=== PATIENT | male | born 1990 | race African-American/Black ===

== ENCOUNTER 2019-11-10 18:52 | Emergency (ER) | payer SELFPAY ==
--- NOTE | 2019-11-10 19:44 | ER Document Report ---
ED Medical Screen (RME) - General Chief Complaint: Numbness of Arm Stated Complaint: RIGHT HAND NUMBNESS, SWELLING Time Seen by Provider: 11/10/19 19:29 - HPI Notes: 11/10/19 19:[address] Lawler and we will get basic labs/CT to further evaluate. Patient is a 28-year-old male who woke up [place] morning having numbness from his elbow distal through his fingers and having the inability to move his hand through complete range of motion. Patient states that the sensation has since resolved to his forearm, but from his wrist distal he has difficulty moving his hand and still has tingling associated. No headache. He did not have any droop of his face or other areas of weakness during this time. Patient is not sure if he slept on his arm wrong or not. No other significant past medical history. I have treated and performed a rapid initial assessment of this patient. A comprehensive ED assessment and evaluation of the patient, analysis of test results and completion of medical decision making process will be conducted by additional ED providers. PHYSICAL EXAMINATION: GENERAL: Well-appearing, well-nourished and in no acute distress. A&Ox4. Answers questions appropriately. Neuro: He does have sensation to sharp and dull to the hands bilaterally. There may be some mild decrease sensation to the right hand overall however. Decreased motor function to the right hand. Neuro exam otherwise unremarkable. - Related Data Allergies/Adverse Reactions: No Known Allergies Allergy (Unverified 11/10/19 19:29) Physical Exam - Vital signs Vitals: Temp Pulse Resp BP Pulse Ox 98.5 F 79 18 125/59 L 99 11/10/19 18:57 11/10/19 18:57 11/10/19 18:57 11/10/19 18:57 11/10/19 18:57 Course - Vital Signs Vital signs: Temp Pulse Resp BP Pulse Ox 98.5 F 79 18 125/59 L 99 11/10/19 18:57 11/10/19 18:57 11/10/19 18:57 11/10/19 18:57 11/10/19 18:57
[2019-11-10 20:10] LABS: APPEARANCE,URINE CLEAR; BILIRUBIN,URINE NEGATIVE (NEGATIVE); COLOR,URINE YELLOW; GLUCOSE, URINE NEGATIVE (NEGATIVE); KETONES,URINE NEGATIVE (NEGATIVE); PROTEIN,URINE NEGATIVE (NEGATIVE); URINE SPECIFIC GRAVITY 1.026; UROBILINOGEN,URINE NEGATIVE mg/dL (<2.0)
[2019-11-10 20:16] LABS: ABSOLUTE EOSINOPHILS # (AUTO) 0.1 10^3/uL (0.0-0.6); ABSOLUTE MONOCYTES (AUTO) 0.6 10^3/uL (0.1-1.4); ABSOLUTE NEUT (AUTO) 2.3 10^3/uL (1.7-8.2); HEMOGLOBIN 14.5 g/dL (13.5-17.0); TOTAL CELLS COUNTED % (AUTO) 100 %; WHITE BLOOD COUNT 5.2 10^3/uL (4.0-10.5)
[2019-11-10 20:19] LABS: ABSOLUTE LYMPHOCYTES (AUTO) 2.1 10^3/uL (0.5-4.7); BASOPHILS % (AUTO) 0.7 % (0-2); EOSINOPHILS % (AUTO) 1.4 % (0-6); HEMATOCRIT 42.4 % (37.9-51.0); LYMPHOCYTES % (AUTO) 41.3 % (13-45); MEAN CORPUSCULAR HGB CONC 34.3 g/dL (32.0-36.0); MEAN CORPUSCULAR VOLUME 88 fl (80-97); MONOCYTES % (AUTO) 11.3 % (3-13); PLATELET COUNT 229 10^3/uL (150-450); RED BLOOD COUNT 4.85 10^6/uL (4.35-5.55); RED CELL DISTRIBUTION WIDTH 14.4 % (11.5-14.0); SEGMENTED NEUTROPHILS % (AUTO) 45.3 % (42-78)
[2019-11-10 20:34] LABS: ALBUMIN 4.2 g/dL (3.5-5.0); ALKALINE PHOSPHATASE 45 U/L (38-126); ANION GAP 7 (5-19); ASPARTATE AMINO TRANSFERASE 28 U/L (17-59); BILIRUBIN,TOTAL 0.2 mg/dL (0.2-1.3); BLOOD UREA NITROGEN 15 mg/dL (7-20); CALCIUM 9.8 mg/dL (8.4-10.2); CARBON DIOXIDE 30 mmol/L (22-30); CHLORIDE 101 mmol/L (98-107); GLUCOSE 100 mg/dL (75-110); POTASSIUM 4.1 mmol/L (3.6-5.0); TOTAL PROTEIN 7.7 g/dL (6.3-8.2)
--- NOTE | 2019-11-10 20:44 | RADIOLOGY REPORT (SQ) ---
EXAM DESCRIPTION: CT HEAD WITHOUT IV CONTRAST COMPLETED DATE/TME: 11/10/2019 19:41 CLINICAL HISTORY: Right forearm and hand numbness, focal deficit COMPARISON: None Available. TECHNIQUE: Contiguous axial images of the brain were obtained without the administration of intravenous contrast. This exam was performed according to our departmental dose-optimization program, which includes automated exposure control, adjustment of the mA and/or kV according to patient size and/or use of iterative reconstruction technique. FINDINGS: There is no acute intracranial hemorrhage or mass effect. Ventricular system is within normal limits. There is adequate babb-white matter differentiation. There is no skull fracture. The visualized paranasal sinuses and mastoid air cells are within normal limits. IMPRESSION: No acute intracranial abnormalities. Follow-up MRI could be helpful for further evaluation of patient's symptoms.
--- NOTE | 2019-11-10 21:57 | ER Document Report ---
ED General - General Chief Complaint: Numbness of Arm Stated Complaint: RIGHT HAND NUMBNESS, SWELLING Time Seen by Provider: 11/10/19 19:29 Notes: Patient is a 28-year-old male that comes emergency department for chief complaint of right hand weakness and numbness. He states that on Sunday morning he woke up and he felt numbness in his right forearm and in the right hand, he states the right forearm improved and now he only feels it in the hand but he cannot extend the fingers, he cannot extend his hand at the wrist, and he has a weakened bundler seasonal greenery. He denies any visual changes, headache, speech difficulty, leg deficit, or any other symptoms. He denies neck pain or history of any abnormality with the cervical spine. He denies history of IV drug abuse, he denies any daily medications or diagnosed past medical history. His mother is here with him. - Related Data Allergies/Adverse Reactions: No Known Allergies Allergy (Unverified 11/10/19 19:29) Past Medical History - General Information source: Patient - Social History Smoking Status: Current Every Day Smoker Frequency of alcohol use: None Drug Abuse: None Lives with: Family Family History: Reviewed & Not Pertinent Patient has suicidal ideation: No Patient has homicidal ideation: No Surgical Hx: Negative - Immunizations Immunizations up to date: Yes Hx Diphtheria, Pertussis, Tetanus Vaccination: Yes Review of Systems - Review of Systems Constitutional: No symptoms reported EENT: No symptoms reported Cardiovascular: No symptoms reported Respiratory: No symptoms reported Gastrointestinal: No symptoms reported Genitourinary: No symptoms reported Male Genitourinary: No symptoms reported Musculoskeletal: See HPI Skin: No symptoms reported Hematologic/Lymphatic: No symptoms reported Neurological/Psychological: See HPI Physical Exam - Vital signs Vitals: Temp Pulse Resp BP Pulse Ox 98.5 F 79 18 125/59 L 99 11/10/19 18:57 11/10/19 18:57 11/10/19 18:57 11/10/19 18:57 11/10/19 18:57 - Notes Notes: GENERAL: Alert, interacts well. No acute distress. HEAD: Normocephalic, atraumatic. EYES: Pupils equal, round, and reactive to light. Extraocular movements intact. ENT: Oral mucosa moist, tongue midline. Oropharynx unremarkable. Airway patent. NECK: Full range of motion. Supple. Trachea midline. LUNGS: Clear to auscultation bilaterally, no wheezes, rales, or rhonchi. No respiratory distress. HEART: Regular rate and rhythm. No murmur ABDOMEN: Soft, non-tender. Non-distended. EXTREMITIES: All extremities normal except for right extremity, see neurological exam below. No edema, normal radial and dorsalis pedis pulses bilaterally. No cyanosis. BACK: no cervical, thoracic, lumbar midline tenderness. No saddle anesthesia, normal distal neurovascular exam. Moves all extremities in full range of motion. NEUROLOGICAL: Alert and oriented x3. Normal speech. Cranial nerves II through XII grossly intact. Patient has inability to raise the wrists in extension equally with weakness on the right, patient is not able to hold his hand up steadily when trying to perform [id number] testing, patient has difficulty spreading the fingers of the right hand as well. There is sensation deficit over the dorsum of the hand mainly and minimally of the fingertips of the first, second, third fingers. Patient has to flex his hand in order to perform gripping motion. Capillary refill intact, forearm, elbow, shoulder exams intact. Otherwise unremarkable neurological exam. PSYCH: Normal affect, normal mood. SKIN: Warm, dry, normal turgor. No rashes or lesions noted. Course - Re-evaluation Re-evalutation: Patient with obvious motor deficit of the right hand and wrist. I did ask Dr. Qureshi to evaluate the patient at bedside, he states that this is more likely peripheral but because patient has an obvious neurological deficit he does recommend that we rule out stroke and perform an MRI of the brain. Patient is very agreeable with this along with the mother. CT of the head had been negative, MRI was performed and also was negative. Laboratory work-up un remarkable. Patient does sleep on the right arm. There does appear to be some peripheral palsy causing the difficulty in flexion of the wrist, spreading of the fingers, and the numbness. Dr. So recommends patient follow-up with neurology first. Discussed with patient and mother the findings, details, recommendations, follow-up. Discussed return precautions. They state appreciation and agreement. - Vital Signs Vital signs: Temp Pulse Resp BP Pulse Ox 98.2 F 80 16 113/72 97 11/11/19 00:11/11/19 00:11/11/19 00:11/11/19 00:11/11/19 00:26 - Laboratory Result Diagrams: 11/10/19 19:59 11/10/19 19:59 Laboratory results interpreted by me: 11/10/19 19:59 RDW 14.4 H Discharge - Discharge Clinical Impression: Numbness of right hand, Right hand weakness Condition: Stable Disposition: HOME, SELF-CARE Additional Instructions: Your work-up and MRI of the brain are normal. 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 Do not sleep on the right arm, hand, or forearm, please follow-up closely with the neurology referral listed below. Return for any concerning worsening symptoms including new areas of weakness, new areas of numbness, or any other concerning symptoms. [facility] [id number] [facility] [id number] Forms: Return to Work
--- NOTE | 2019-11-10 23:11 | RADIOLOGY REPORT (SQ) ---
EXAM DESCRIPTION: MR BRAIN WITHOUT IV CONTRAST COMPLETED DATE/TME: 11/10/2019 21:55 CLINICAL HISTORY: 28 years, Male, right hand weakness and numbness COMPARISON: CT brain today's date TECHNIQUE: 273 Images stored on PACS. LIMITATIONS: None. FINDINGS: Sagittal midline anatomic structures show an unremarkable appearance to the pituitary and suprasellar regions. The globes are intact. The paranasal sinuses and mastoid air cells are well aerated. Normal flow void in visualized intracranial vessels. The visualized cranial nerve complex these are unremarkable. There is no intra or extra-axial hemorrhage. Diffusion-weighted images are normal, without evidence for acute infarct. There is no mass, mass effect, or midline shift. IMPRESSION: Unremarkable, unenhanced MRI brain copyright 2011 [employer]- All Rights Reserved
[2019-11-11 00:27] VITALS: BP 113/72
== END 2019-11-11 00:36 | disposition home or self-care (01) ==
LOC: ER 18:52
DX: R20.0 Anesthesia of skin (principal); R53.1 Weakness; F17.200 Nicotine dependence, unspecified, uncomplicated
CPT/HCPCS: 36415; 70450; 70551; 80053; 81001; 85025; 99284

== ENCOUNTER 2020-09-20 15:59 | Emergency (ER) | payer SELFPAY ==
[2020-09-20 16:05] VITALS: BP 133/92
--- NOTE | 2020-09-20 16:21 | ER Document Report ---
HPI - HPI Patient complains to provider of: skin infection Time Seen by Provider: 09/20/20 16:17 Onset: Other - 2 wks Onset/Duration: Persistent Quality of pain: Achy Pain Level: 1 Context: Patient presents complaining of insect bite to the right forearm for the past 2 weeks. Patient states that he has been squeezing on the area and has had pus draining from the wound. Patient denies any fever. Patient denies any history of MRSA. Associated Symptoms: denies: Fever Exacerbated by: Denies Relieved by: Denies Similar symptoms previously: No - ROS ROS below otherwise negative: Yes Systems Reviewed and Negative: Yes All other systems reviewed and negative - CONSTITUTIONAL Constitutional: DENIES: Fever, Chills - MUSCULOSKELETAL Musculoskeletal: REPORTS: Extremity pain - DERM Notes: Redness to a skin lesion Past Medical History - General Information source: Patient, Parent - Social History Smoking Status: Current Every Day Smoker Frequency of alcohol use: None Drug Abuse: None Occupation: None Lives with: Family Family History: Reviewed & Not Pertinent - Medical History Medical History: Negative Past Surgical History: Reports: Other - Skin lesion removed from arm - Immunizations Immunizations up to date: Yes Hx Diphtheria, Pertussis, Tetanus Vaccination: Yes Vertical Provider Document - CONSTITUTIONAL Agree With Documented VS: Yes Exam Limitations: No Limitations General Appearance: WD/WN, No Apparent Distress - HEENT HEENT: Atraumatic, Normocephalic - NECK Neck: Normal Inspection - RESPIRATORY Respiratory: No Respiratory Distress - CARDIOVASCULAR Pulses: Normal: Radial - MUSCULOSKELETAL/EXTREMETIES Musculoskeletal/Extremeties: MAEW, FROM - NEURO Level of Consciousness: Awake, Alert, Appropriate Motor/Sensory: No Motor Deficit - DERM Integumentary: Warm, Dry, Abscess - Resolving abscess to the volar aspect of the right forearm, small opening to wound with serous drainage, no fluctuance, area of induration measures 1 cm Course - Re-evaluation Re-evalutation: 09/20/20 16:20 Spoke with patient's mother on phone at patient's insistence regarding the plan of care, patient and family agreeable with discharge plan of care at this time. Discussed wound care with patient. - Vital Signs Vital signs: Temp Pulse Resp BP Pulse Ox 98.3 F 87 16 133/92 H 97 09/20/20 16:05 09/20/20 16:05 09/20/20 16:05 09/20/20 16:05 09/20/20 16:05 Discharge - Discharge Clinical Impression: Abscess Condition: Stable Disposition: HOME, SELF-CARE Instructions: Abscess ([facility]), Cephalexin ([facility]), Trimethoprim-Sulfa ([facility]) Additional Instructions: Return immediately for any new or worsening symptoms: Fever, increased redness, increased swelling, increased pain or any concerning new symptoms Followup with your primary care provider, call tomorrow to make a followup appointment Prescriptions: Sulfamethoxazole/Trimethoprim [Bactrim Ds Tablet] 1 each PO BID #20 tablet Cephalexin Monohydrate [Keflex 500 mg Capsule] 500 mg PO Q6H 5 Days #20 capsule Referrals: [facility] [Provider Group] - Follow up as needed
== END 2020-09-20 16:33 | disposition home or self-care (01) ==
LOC: ER 15:59
DX: L02.413 Cutaneous abscess of right upper limb (principal); F17.200 Nicotine dependence, unspecified, uncomplicated
CPT/HCPCS: 99283